=== PATIENT | female | born 1990 ===

== ENCOUNTER 2017-07-04 16:11 | Emergency (ER) | payer MEDICAID ==
[2017-07-04 16:23] VITALS: BP 149/96; PULSE 85; TEMP 97.5
--- NOTE | 2017-07-04 16:38 | ED PDOC ---
HPI: General Adult Time Seen by Provider: 07/04/17 16:28 Chief Complaint (Nursing): Shortness Of Breath History Per: Patient Current Symptoms Are (Timing): Still Present Severity: Mild Pain Scale Rating Of: 3 Additional Complaint(s): Right lower rib/back pain x 3 months, worse over past 2 weeks. Worse on inspiration. Denies fever or cough. No SOB. Denies abd pain. No dusuria or frequency. Past Medical History Vital Signs: Last Vital Signs Temp 97.5 F L 07/04/17 16:22 Pulse 85 07/04/17 16:22 Resp 18 07/04/17 16:53 BP 149/96 H 07/04/17 16:22 Pulse Ox 98 07/04/17 16:53 - Medical History PMH: No Chronic Diseases - Family History Family History: States: Unknown Family Hx - Home Medications Home Medications: Ambulatory Orders Medication Instructions Recorded Azithromycin [Zithromax] 250 mg PO DAILY #6 tab 07/04/17 Naproxen [Naprosyn] 500 mg PO Q12H #20 tab 07/04/17 - Allergies Allergies/Adverse Reactions: Allergies Allergy/AdvReac Type Severity Reaction Status Date / Time Penicillins Allergy RASH Verified 07/04/17 16:21 Review of Systems Constitutional: Negative for: Fever Cardiovascular: Negative for: Chest Pain Respiratory: Positive for: Pleuritic Pain. Negative for: Cough, Shortness of Breath Gastrointestinal: Negative for: Nausea, Vomiting, Abdominal Pain Genitourinary Female: Negative for: Dysuria, Frequency Musculoskeletal: Positive for: Back Pain Physical Exam - Physical Exam Appears: Positive for: Non-toxic, No Acute Distress Skin: Positive for: Normal Color, Warm. Negative for: Rash Cardiovascular/Chest: Positive for: Regular Rate, Rhythm, Chest Non Tender Respiratory: Positive for: Normal Breath Sounds. Negative for: Rhonchi, Wheezing Gastrointestinal/Abdominal: Positive for: Bowel Sounds, Soft. Negative for: Tenderness Back: Positive for: Normal Inspection. Negative for: L CVA Tenderness, R CVA Tenderness Extremity: Positive for: Normal ROM Neurologic/Psych: Positive for: Alert, Oriented - ECG O2 Sat by Pulse Oximetry: 97 Disposition - Clinical Impression Clinical Impression: Bronchitis - Patient ED Disposition Is Patient to be Admitted: No Counseled Patient/Family Regarding: Studies Performed, Diagnosis, Need For Followup, Rx Given - Disposition Referrals: [facility] [Outside] Disposition: Routine/Home Disposition Time: 19:17 Condition: FAIR Prescriptions: Azithromycin [Zithromax] 250 mg PO DAILY #6 tab Naproxen [Naprosyn] 500 mg PO Q12H #20 tab Instructions: Acute Bronchitis (ED) Forms: [employer] (Slovak)
[2017-07-04 16:53] VITALS: RESP 18
[2017-07-04 19:19] VITALS: O2SAT 97
--- NOTE | 2017-07-05 10:56 | RAD ---
HISTORY: SOB COMPARISON: Images from chest PA and lateral radiographs performed 06/13/11 TECHNIQUE: Chest PA and lateral FINDINGS: Examination limited by habitus. LUNGS: No focal consolidation. Please note that chest x-ray has limited sensitivity for the detection of pulmonary masses. PLEURA: No significant pleural effusion identified. No definite pneumothorax . CARDIOVASCULAR: The cardiomediastinal silhouette appears within normal limits of size. OSSEOUS STRUCTURES: No acute osseous abnormality identified. VISUALIZED UPPER ABDOMEN: Unremarkable. OTHER FINDINGS: None. IMPRESSION: No focal consolidation, significant pleural effusion, or definite pneumothorax identified.
== END 2017-07-04 20:01 | disposition home or self-care (01) ==
LOC: H.ER 16:11
DX: J40 Bronchitis, not specified as acute or chronic (principal); Z88.0 Allergy status to penicillin

== ENCOUNTER 2017-08-01 05:45 | Emergency (ER) | payer MEDICAID ==
--- NOTE | 2017-08-01 06:46 | ED PDOC ---
HPI: General Adult Time Seen by Provider: 08/01/17 06:06 Chief Complaint (Nursing): Chest Pain History Per: Patient History/Exam Limitations: no limitations Onset/Duration Of Symptoms: Hrs (x 12) Current Symptoms Are (Timing): Still Present Additional Complaint(s): Ms. Wilson is a 27 year old female who presents to the emergency department complaining of left interior rib pain for the last 12 hours. Patient denies trauma. No fever, cough. Patient did have shortness of breath, but pain is better now. Patient states never had pain before. PMD: Provider TBD Past Medical History Reviewed: Historical Data, Nursing Documentation, Vital Signs Vital Signs: Last Vital Signs Temp 97.8 F 08/01/17 05:57 Pulse 91 H 08/01/17 07:00 Resp 16 08/01/17 05:57 BP 139/84 08/01/17 05:57 Pulse Ox 100 08/01/17 07:13 - Medical History PMH: No Chronic Diseases - Surgical History Surgical History: No Surg Hx - Family History Family History: States: Unknown Family Hx - Social History Current smoker - smoking cessation education provided: No Alcohol: Occasional Drugs: Denies - Home Medications Home Medications: Ambulatory Orders Medication Instructions Recorded Azithromycin [Zithromax] 250 mg PO DAILY #6 tab 07/04/17 Naproxen [Naprosyn] 500 mg PO Q12H #20 tab 07/04/17 - Allergies Allergies/Adverse Reactions: Allergies Allergy/AdvReac Type Severity Reaction Status Date / Time Penicillins Allergy RASH Verified 08/01/17 05:56 Review of Systems ROS Statement: Except As Marked, All Systems Reviewed And Found Negative Constitutional: Negative for: Fever Cardiovascular: Positive for: Other (Left interior rib pain) Respiratory: Positive for: Shortness of Breath. Negative for: Cough Physical Exam - Reviewed Nursing Documentation Reviewed: Yes Vital Signs Reviewed: Yes - Physical Exam Appears: Positive for: Well (Comfortable), No Acute Distress Head Exam: Positive for: ATRAUMATIC, NORMAL INSPECTION, NORMOCEPHALIC Skin: Positive for: Normal Color, Warm, Dry Eye Exam: Positive for: Normal appearance, EOMI, PERRL ENT: Positive for: Normal ENT Inspection. Negative for: Pharyngeal Erythema Neck: Positive for: Normal Cardiovascular/Chest: Positive for: Tachycardia, Other (Pinpoint tenderness to left rib area) Respiratory: Positive for: Normal Breath Sounds. Negative for: Respiratory Distress Gastrointestinal/Abdominal: Negative for: Tenderness Back: Positive for: Normal Inspection Extremity: Positive for: Normal ROM. Negative for: Deformity Neurologic/Psych: Positive for: Alert, Oriented (x 3). Negative for: Motor/ Sensory Deficits - Laboratory Results Result Diagrams: 08/01/17 06:49 08/01/17 06:49 - ECG ECG: Positive for: Interpreted By Me, Viewed By Me ECG Rhythm: Positive for: Sinus Tachycardia. Negative for: ST/T Changes Rate: 102 O2 Sat by Pulse Oximetry: 100 (RA) Pulse Ox Interpretation: Normal Medical Decision Making Medical Decision Making: Time: 06:24 Impression(s): r/o cardiac etiology for chest pain, chest x-ray to r/o pneumothorax acute rib trauma Plan: - BMP - Troponin I - CBC - Partial Thromboplastin Time - Prothrombin Time - Chest X-Ray Time: 06:41 Plan: - Toradol 30 mg IV Once Scribe Attestation: Documented by Darien Murillo, acting as a scribe for Joselin Lechuga MD Provider Scribe Attestation: All medical record entries made by the Scribe were at my direction and personally dictated by me. I have reviewed the chart and agree that the record accurately reflects my personal performance of the history, physical exam, medical decision making, and the department course for this patient. I have also personally directed, reviewed, and agree with the discharge instructions and disposition. Disposition - Patient ED Disposition Is Patient to be Admitted: Transfer of Care - Disposition Disposition: Transfer of Care Disposition Time: 07:00 Forms: [employer] (Yi) Patient Signed Over To: Sharon Lobo
[2017-08-01 06:52] LABS: BASO # 0.2 K/uL (0.0-0.2); BASO % 0.9 % (0.0-2.0); EOS # 0.1 K/uL (0.0-0.7); EOS % 0.7 % (0.0-4.0); HEMOGLOBIN 12.6 g/dL (12.0-16.0); LYMPH % 17.5 % (20.0-40.0); MEAN CELL VOLUME 86.2 fl (81.0-99.0); MEAN CORPUSCULAR HGB CONC 33.6 g/dL (33.0-37.0); MEAN PLATELET VOLUME 8.6 fl (7.2-11.7); MONO # 0.8 K/uL (0.0-0.8); NEUT % 75.9 % (50.0-75.0); RBC 4.36 Mil/uL (3.80-5.20); RED CELL DISTRIBUTION WIDTH 12.7 % (11.5-14.5); WHITE BLOOD COUNT 17.1 K/uL (4.8-10.8)
--- NOTE | 2017-08-01 07:13 | ED PDOC ---
- Laboratory Results Result Diagrams: 08/01/17 06:49 08/01/17 06:49 - ECG O2 Sat by Pulse Oximetry: 100 (RA) Pulse Ox Interpretation: Normal - Radiology X-Ray: Interpreted by Me X-Ray Interpretation: No Acute Disease Medical Decision Making Medical Decision Making: Time: 07:00 Patient signed out to me by Dr. Lechuga, pending labs, CXR. and re-evaluation. Accession No. : [id number] Patient Name / ID : PAUL MONTANO / [id number] Exam Date : 08/01/2017 07:30:30 ( Approved ) Study Comment : Sex / Age : F / 27Y Creator : Scout Goodwin MD Dictator : Scout Goodwin MD Pump Tester : Application Software Developer : Scout Goodwin MD Approver2 : Report Date : 08/01/2017 08:57:47 My Comment : HISTORY: cp COMPARISON: Chest radiographs 07/04/2017. TECHNIQUE: Chest PA and lateral FINDINGS: LUNGS: No active pulmonary disease. PLEURA: No significant pleural effusion identified. No pneumothorax apparent. CARDIOVASCULAR: Normal. OSSEOUS STRUCTURES: No significant abnormalities. VISUALIZED UPPER ABDOMEN: Normal. OTHER FINDINGS: None. IMPRESSION: No interval acute cardiopulmonary disease appreciated. Scribe Attestation: Documented by Darine Murillo, acting as a scribe for Sharon Lobo MD. Provider Scribe Attestation: All medical record entries made by the Scribe were at my direction and personally dictated by me. I have reviewed the chart and agree that the record accurately reflects my personal performance of the history, physical exam, medical decision making, and the department course for this patient. I have also personally directed, reviewed, and agree with the discharge instructions and disposition. Disposition - Clinical Impression Clinical Impression: UTI (urinary tract infection) - POA Present On Arrival: None - Disposition Disposition: Routine/Home Disposition Time: 11:58 Condition: STABLE Additional Instructions: FOLLOW-UP WITH PMD WITHIN 2 DAYS FOR REEVALUATION. Prescriptions: Ibuprofen [Motrin] 600 mg PO Q6H PRN #20 tab PRN Reason: Pain, Moderate (4-7) Nitrofurantoin Macrocrystals [Macrobid] 100 mg PO BID #13 cap Instructions: Urinary Tract Infections in Adults Forms: [employer] (Danish)
[2017-08-01 07:14] LABS: BLOOD UREA NITROGEN 8 mg/dl (7-17); CALCIUM 9.4 mg/dL (8.4-10.2); GFR AFRICAN-AMERICAN > 60; GFR NON-AFRICAN AMERICAN > 60
[2017-08-01 07:50] LABS: SQUAMOUS EPITHIAL 2 /hpf (0-5); URINE BACTERIA OCC (<OCC); URINE BILIRUBIN NEGATIVE (NEGATIVE); URINE BLOOD NEGATIVE (NEGATIVE); URINE CLARITY SLIGHTY-CLOUDY (Clear); URINE COLOR YELLOW (YELLOW); URINE GLUCOSE (UA) NEG (Normal); URINE LEUKOCYTE ESTERASE TRACE Leu/uL (Negative); URINE NITRATE NEGATIVE (NEGATIVE); URINE PROTEIN NEGATIVE (NEGATIVE); URINE UROBILINOGEN 0.2-1.0 mg/dL (0.2-1.0)
--- NOTE | 2017-08-01 08:59 | RAD ---
HISTORY: cp COMPARISON: Chest radiographs 07/04/2017. TECHNIQUE: Chest PA and lateral FINDINGS: LUNGS: No active pulmonary disease. PLEURA: No significant pleural effusion identified. No pneumothorax apparent. CARDIOVASCULAR: Normal. OSSEOUS STRUCTURES: No significant abnormalities. VISUALIZED UPPER ABDOMEN: Normal. OTHER FINDINGS: None. IMPRESSION: No interval acute cardiopulmonary disease appreciated.
[2017-08-01 09:24] LABS: INR 1.2 (0.9-1.2); PARTIAL THROMBOPLASTIN TIME 34.4 Seconds (25.6-37.1); PROTHROMBIN TIME 13.1 Seconds (9.8-13.1)
[2017-08-01] MEDS ORDERED: Sodium Chloride 0.9% 100 ML ONE (09:34)
[2017-08-01] MEDS ORDERED: Iodixanol 320 MG/ML 100 ML BOTTLE IV ONE (09:34)
--- NOTE | 2017-08-01 11:46 | CT ---
PROCEDURE: CT Chest with contrast (Pulmonary Angiogram) HISTORY: Rib pain, SOB, tachycardia COMPARISON: None available. TECHNIQUE: Axial computed tomography images were obtained of the chest in the pulmonary arterial phase of enhancement. Coronal and sagittal reformatted images were created and reviewed. Intravenous contrast dose: Visipaque 320, 99 cc Radiation dose: Total exam DLP = mGy-cm. This CT exam was performed using one or more of the following dose reduction techniques: Automated exposure control, adjustment of the mA and/or kV according to patient size, and/or use of iterative reconstruction technique. FINDINGS: PULMONARY ARTERIES: No definite CT evidence to suggest pulmonary embolism. Main pulmonary artery is normal in caliber as well. Peripheral pulmonary artery distribution is somewhat limited in evaluation. AORTA: No acute findings. No thoracic aortic aneurysm. Trace residual thymic tissue is seen in the pre aortic/ prevascular space. No significant mediastinal or hilar lymphadenopathy appreciated. LUNGS: Trace bibasilar atelectasis noted inferiorly. Central airways appear clear. No nodule, mass or pulmonary consolidation. PLEURAL SPACES: Unremarkable. No effusion or pneuomothorax. HEART: Unremarkable. No cardiomegaly. No significant pericardial effusion. BONES, CHEST WALL: Unremarkable. No fracture or destructive lesion OTHER FINDINGS: Unremarkable. IMPRESSION: No CT evidence of pulmonary embolus in main to mid pulmonary artery size appear peripheral pulmonary arteries are somewhat limited evaluation. Other than minimal bibasilar dependent atelectasis, the remainder of the examination is unremarkable.
[2017-08-01 12:11] VITALS: BP 128/78; PULSE 78; RESP 18; TEMP 97
[2017-08-01 16:44] VITALS: O2SAT 100
== END 2017-08-01 12:11 | disposition home or self-care (01) ==
LOC: H.ER 05:45
DX: N39.0 Urinary tract infection, site not specified (principal); Z88.0 Allergy status to penicillin
CPT/HCPCS: 71046; 71275; 80048; 81003; 81025; 84484; 85025; 85378; 85610; 85730; 87086; 96374; 99283; J1885; Q9967

== ENCOUNTER 2017-10-11 05:48 | Emergency (ER) | payer MEDICAID ==
[2017-10-11 06:08] VITALS: BMI 35.2
[2017-10-11 06:13] VITALS: O2SAT 98
[2017-10-11 07:15] LABS: BASO # 0.1 K/uL (0.0-0.2); EOS # 0.2 K/uL (0.0-0.7); EOS % 1.2 % (0.0-4.0); HEMOGLOBIN 12.4 g/dL (12.0-16.0); LYMPH # 3.6 K/uL (1.0-4.3); MEAN CORPUSCULAR HEMOGLOBIN 29.6 pg (27.0-31.0); MEAN PLATELET VOLUME 8.3 fl (7.2-11.7); MONO # 0.6 K/uL (0.0-0.8); MONO % 4.6 % (0.0-10.0); NEUT # 8.3 K/uL (1.8-7.0); NEUT % 65.2 % (50.0-75.0); RBC 4.19 Mil/uL (3.80-5.20); RED CELL DISTRIBUTION WIDTH 13.7 % (11.5-14.5); WHITE BLOOD COUNT 12.8 K/uL (4.8-10.8)
[2017-10-11 07:16] LABS: ALB/GLOB RATIO 1.2 (1.0-2.1); ALBUMIN 4.4 g/dL (3.5-5.0); ALT/SGPT 42 U/L (9-52); AST/SGOT 52 U/L (14-36); BLOOD UREA NITROGEN 9 mg/dl (7-17); CALCIUM 9.3 mg/dL (8.4-10.2); GFR AFRICAN-AMERICAN > 60; GFR NON-AFRICAN AMERICAN > 60
--- NOTE | 2017-10-11 07:18 | ED PDOC ---
HPI: Headache Time Seen by Provider: 10/11/17 06:15 Chief Complaint (Nursing): Headache Chief Complaint (Provider): Headache History Per: Patient History/Exam Limitations: no limitations Onset/Duration Of Symptoms: Days (x 5) Associated Symptoms: Photophobia Additional Complaint(s): 27 years old female with history of migraine presents to the ED with complaints of headache associated with photophobia and nausea onset 4 days. She admits taking Naproxen at 11 pm yesterday with minimal improvement. She denies any fever, vomiting, recent illness or body weakness. PMD: non provided Past Medical History Reviewed: Historical Data Vital Signs: Last Vital Signs Temp 98.2 F 10/11/17 06:08 Pulse 85 10/11/17 06:08 Resp 18 10/11/17 06:08 BP 126/80 10/11/17 06:08 Pulse Ox 98 10/11/17 06:08 - Medical History PMH: Migraine - Surgical History Surgical History: No Surg Hx - Family History Family History: States: Unknown Family Hx - Social History Current smoker - smoking cessation education provided: No Alcohol: None Drugs: Denies - Home Medications Home Medications: Ambulatory Orders Medication Instructions Recorded Azithromycin [Zithromax] 250 mg PO DAILY #6 tab 07/04/17 Naproxen [Naprosyn] 500 mg PO Q12H #20 tab 07/04/17 Ibuprofen [Motrin] 600 mg PO Q6H PRN #20 tab 08/01/17 Nitrofurantoin Macrocrystals 100 mg PO BID #13 cap 08/01/17 [Macrobid] Naproxen [Naprosyn] 500 mg PO BID PRN #15 tablet 10/11/17 Ondansetron ODT [Zofran ODT] 4 mg PO Q8H PRN #20 odt 10/11/17 - Allergies Allergies/Adverse Reactions: Allergies Allergy/AdvReac Type Severity Reaction Status Date / Time Penicillins Allergy RASH Verified 10/11/17 06:08 Review of Systems ROS Statement: Except As Marked, All Systems Reviewed And Found Negative Constitutional: Negative for: Fever, Weakness, Other (recent illness) Gastrointestinal: Negative for: Vomiting Neurological: Positive for: Headache Physical Exam - Reviewed Nursing Documentation Reviewed: Yes Vital Signs Reviewed: Yes - Physical Exam Appears: Positive for: Non-toxic, No Acute Distress Head Exam: Positive for: ATRAUMATIC, NORMOCEPHALIC Skin: Positive for: Normal Color, Warm, Dry Eye Exam: Positive for: Normal appearance, EOMI, PERRL ENT: Positive for: Normal ENT Inspection Neck: Positive for: Normal, Painless ROM, Supple Cardiovascular/Chest: Positive for: Regular Rate, Rhythm. Negative for: Murmur Respiratory: Positive for: Normal Breath Sounds. Negative for: Respiratory Distress Gastrointestinal/Abdominal: Positive for: Normal Exam, Soft. Negative for: Tenderness Back: Positive for: Normal Inspection Extremity: Positive for: Normal ROM. Negative for: Tenderness Neurologic/Psych: Positive for: Alert, services rep II-XII, Oriented, Gait (stable). Negative for: Motor/Sensory Deficits, Facial Droop - Laboratory Results Result Diagrams: 10/11/17 07:01 10/11/17 07:01 - ECG O2 Sat by Pulse Oximetry: 98 (RA) Pulse Ox Interpretation: Normal Medical Decision Making Medical Decision Making: Time: 643 Initial Impression: headache and migraine, history of migraines, rule out intracranial process versus migraine Initial Plan: --CT Head w/o Contrast --CMP --CBC --Reglan 10 mg IVP 07:00 -Patient signed out to Dr. Lobo, pending imaging, labs and reevaluation. Scribe Attestation: Documented by Zuri Rosen, acting as a scribe for Joselin Lechuga MD Provider Scribe Attestation: All medical record entries made by the Scribe were at my direction and personally dictated by me. I have reviewed the chart and agree that the record accurately reflects my personal performance of the history, physical exam, medical decision making, and the department course for this patient. I have also personally directed, reviewed, and agree with the discharge instructions and disposition. Disposition - Clinical Impression Clinical Impression: Acute headache - Patient ED Disposition Is Patient to be Admitted: Transfer of Care - Disposition Referrals: [facility] [Outside] Disposition: Transfer of Care Disposition Time: 07:00 Condition: STABLE Prescriptions: Naproxen [Naprosyn] 500 mg PO BID PRN #15 tablet PRN Reason: Pain, Moderate (4-7) Ondansetron ODT [Zofran ODT] 4 mg PO Q8H PRN #20 odt PRN Reason: Nausea/Vomiting Instructions: Headache, Adult, Acute Headache (ED) Forms: [employer] (Peruvian) Patient Signed Over To: Sharon Lobo
--- NOTE | 2017-10-11 07:29 | ED PDOC ---
- Laboratory Results Result Diagrams: 10/11/17 07:01 10/11/17 07:01 - ECG O2 Sat by Pulse Oximetry: 98 (RA) - Progress ED Course And Treament: Pt feels better. Re-evaluation Time: 09:45 Condition: Improved Medical Decision Making Medical Decision Makin:00 -Patient endorsed to me by Dr. Lechuga, pending imaging, labs and reevaluation. Disposition - Clinical Impression Clinical Impression: Acute headache - POA Present On Arrival: None - Disposition Referrals: [facility] [Outside] Disposition: Routine/Home Disposition Time: 10:05 Condition: STABLE Prescriptions: Naproxen [Naprosyn] 500 mg PO BID PRN #15 tablet PRN Reason: Pain, Moderate (4-7) Ondansetron ODT [Zofran ODT] 4 mg PO Q8H PRN #20 odt PRN Reason: Nausea/Vomiting Instructions: Headache, Adult, Acute Headache (ED) Forms: [employer] (Botswanan)
[2017-10-11 07:59] VITALS: PULSE 78
--- NOTE | 2017-10-11 09:59 | CT ---
PROCEDURE: CT HEAD WITHOUT CONTRAST. HISTORY: headache COMPARISON: None available. TECHNIQUE: Axial computed tomography images were obtained through the head/brain without intravenous contrast. Radiation dose: Total exam DLP = 845.32 mGy-cm. This CT exam was performed using one or more of the following dose reduction techniques: Automated exposure control, adjustment of the mA and/or kV according to patient size, and/or use of iterative reconstruction technique. FINDINGS: HEMORRHAGE: No intracranial hemorrhage. BRAIN: Normal lincoln-white matter differentiation and density are appreciated throughout the cerebrum and cerebellum with the brainstem appearing unremarkable as well. There is no mass effect. There is no suspicious extra-axial fluid collection and the midline brain anatomy appears diffusely unremarkable. VENTRICLES: Unremarkable. No hydrocephalus. CALVARIUM: Unremarkable. PARANASAL SINUSES: Unremarkable as visualized. No significant inflammatory changes. MASTOID AIR CELLS: Unremarkable as visualized. No inflammatory changes. OTHER FINDINGS: None. IMPRESSION: Unremarkable unenhanced CT of the Head.
[2017-10-11 10:19] VITALS: BP 126/76; RESP 18; TEMP 97
== END 2017-10-11 10:19 | disposition home or self-care (01) ==
LOC: H.ER 05:48
DX: R51 Headache (principal); Z88.0 Allergy status to penicillin
CPT/HCPCS: 70450; 80053; 81025; 85025; 96374; 99285; J2765

== ENCOUNTER 2017-12-06 13:07 | Emergency (ER) | payer MEDICAID ==
[2017-12-06 13:08] VITALS: BMI 35.2
[2017-12-06 13:15] VITALS: O2SAT 98
[2017-12-06 14:30] LABS: BASO # 0.1 K/uL (0.0-0.2); BASO % 0.6 % (0.0-2.0); EOS # 0.1 K/uL (0.0-0.7); EOS % 0.8 % (0.0-4.0); LYMPH # 3.8 K/uL (1.0-4.3); MEAN CELL VOLUME 86.9 fl (81.0-99.0); MEAN CORPUSCULAR HEMOGLOBIN 28.7 pg (27.0-31.0); MEAN CORPUSCULAR HGB CONC 33.1 g/dL (33.0-37.0); MEAN PLATELET VOLUME 8.7 fl (7.2-11.7); MONO # 0.8 K/uL (0.0-0.8); MONO % 5.6 % (0.0-10.0); NEUT # 9.3 K/uL (1.8-7.0); RBC 4.51 Mil/uL (3.80-5.20); WHITE BLOOD COUNT 14.1 K/uL (4.8-10.8)
--- NOTE | 2017-12-06 14:50 | CARD ---
APPROVED REPORT EKG Measurement Heart [id number] <Conclusion> Normal sinus rhythm with sinus arrhythmia Normal ECG
[2017-12-06 15:03] LABS: ALB/GLOB RATIO 1.2 (1.0-2.1); ALBUMIN 4.7 g/dL (3.5-5.0); ALT/SGPT 18 U/L (9-52); AST/SGOT 28 U/L (14-36); BLOOD UREA NITROGEN 9 mg/dl (7-17); CALCIUM 9.2 mg/dL (8.4-10.2); GFR AFRICAN-AMERICAN > 60; GFR NON-AFRICAN AMERICAN > 60
--- NOTE | 2017-12-06 16:24 | RAD ---
HISTORY: SOB, right flank pain COMPARISON: Chest radiographs 08/01/2017. TECHNIQUE: Chest PA and lateral FINDINGS: LUNGS: No active pulmonary disease. PLEURA: No significant pleural effusion identified. No pneumothorax apparent. CARDIOVASCULAR: Normal. OSSEOUS STRUCTURES: No significant abnormalities. VISUALIZED UPPER ABDOMEN: Normal. OTHER FINDINGS: None. IMPRESSION: No interval acute cardiopulmonary disease appreciated.
[2017-12-06 17:13] LABS: SQUAMOUS EPITHIAL 2 /hpf (0-5); URINE BACTERIA FEW (<OCC); URINE BILIRUBIN NEGATIVE (NEGATIVE); URINE BLOOD SMALL (NEGATIVE); URINE CLARITY CLEAR (Clear); URINE COLOR STRAW (YELLOW); URINE GLUCOSE (UA) NEG (Normal); URINE LEUKOCYTE ESTERASE SMALL Leu/uL (Negative); URINE PROTEIN NEGATIVE (NEGATIVE); URINE UROBILINOGEN 0.2-1.0 mg/dL (0.2-1.0)
--- NOTE | 2017-12-06 17:22 | ED PDOC ---
HPI: CCC, URI, Sore Throat Time Seen by Provider: 12/06/17 13:32 Chief Complaint (Nursing): ENT Problem Chief Complaint (Provider): SOB x 4 days History Per: Patient History/Exam Limitations: no limitations Onset/Duration Of Symptoms: Days Current Symptoms Are (Timing): Still Present Location Of Pain: Throat (PAin) Additional Complaint(s): 27 yo female with no medical problems presents with right flank pain and SOB. PT states the flank pain and been on/off for months and no body can figure out what it is. Pt states she has only been to the ER for the pain. PT also states that it is worse today but same location. Pt states she is also having sore throat and SOB. PT denies chest pain. PT denies SOB in the past. No fever/ chills Past Medical History Reviewed: Historical Data, Nursing Documentation, Vital Signs Vital Signs: Last Vital Signs Temp 98.3 F 12/06/17 13:13 Pulse 80 12/06/17 13:13 Resp 16 12/06/17 13:13 BP 132/83 12/06/17 13:13 Pulse Ox 98 12/06/17 13:13 - Medical History PMH: Hyperlipidemia, Migraine - Surgical History Surgical History: No Surg Hx - Family History Family History: States: Unknown Family Hx - Living Arrangements Living Arrangements: With Family - Social History Current smoker - smoking cessation education provided: No - Home Medications Home Medications: Ambulatory Orders Medication Instructions Recorded Azithromycin 250 mg PO DAILY #6 tab 12/06/17 - Allergies Allergies/Adverse Reactions: Allergies Allergy/AdvReac Type Severity Reaction Status Date / Time Penicillins Allergy RASH Verified 12/06/17 13:12 Review of Systems ROS Statement: Except As Marked, All Systems Reviewed And Found Negative Constitutional: Negative for: Fever, Chills ENT: Positive for: Other (Throat pain) Respiratory: Positive for: Shortness of Breath. Negative for: Cough Gastrointestinal: Negative for: Nausea, Vomiting, Abdominal Pain Genitourinary Female: Negative for: Dysuria Neurological: Negative for: Weakness Physical Exam - Reviewed Nursing Documentation Reviewed: Yes Vital Signs Reviewed: Yes - Physical Exam Appears: Positive for: Well, Non-toxic, No Acute Distress Head Exam: Positive for: ATRAUMATIC, NORMAL INSPECTION, NORMOCEPHALIC Skin: Positive for: Normal Color, Warm, DRY Eye Exam: Positive for: Normal appearance ENT: Positive for: Normal ENT Inspection, Pharynx Is Neck: Positive for: Normal, Painless ROM Cardiovascular/Chest: Positive for: Regular Rate, Rhythm Respiratory: Positive for: CNT, Normal Breath Sounds Back: Positive for: Normal Inspection Extremity: Positive for: Normal ROM Neurologic/Psych: Positive for: Alert, Oriented - Laboratory Results Result Diagrams: 12/06/17 14:10 12/06/17 14:10 - ECG O2 Sat by Pulse Oximetry: 98 Medical Decision Making Medical Decision Making: LAbs normal including DDimer. CXR normal. Urine with race leuks - Culture sent. Will treat for URI Case discussed with Dr. Landaverde . Disposition - Clinical Impression Clinical Impression: URI (upper respiratory infection) - Patient ED Disposition Is Patient to be Admitted: No Counseled Patient/Family Regarding: Diagnosis, Need For Followup, Rx Given - Disposition Disposition: Routine/Home Disposition Time: 17:20 Condition: STABLE Prescriptions: Azithromycin 250 mg PO DAILY #6 tab Instructions: Urinary Tract Infections in Adults
[2017-12-06 17:28] VITALS: TEMP 97.9
[2017-12-06 17:52] VITALS: BP 116/72; PULSE 72; RESP 18
== END 2017-12-06 17:52 | disposition home or self-care (01) ==
LOC: H.ER 13:07
DX: J06.9 Acute upper respiratory infection, unspecified (principal); Z88.0 Allergy status to penicillin; E78.5 Hyperlipidemia, unspecified